=== PATIENT | female | born 2000 | race Caucasian/White ===

== ENCOUNTER 2021-01-06 17:20 | Emergency (ER) | payer BC ==
--- NOTE | 2021-01-06 17:47 | EDM.PDOC ---
ED HPI GENERAL MEDICAL PROBLEM - General Chief Complaint: Lower Extremity Injury/Pain Stated Complaint: R ANKLE INJURY Time Seen by Provider: 01/06/21 17:35 Source of Information: Reports: Patient History Limitations: Reports: No Limitations - History of Present Illness INITIAL COMMENTS - FREE TEXT/NARRATIVE: To department with a right ankle injury. Patient states that she was jumping off the bed last night with some friends and ended up rolling her ankle over another individual the ankle when he landed. She states that she was able to ambulate on the ankle last night however the pain and the swelling has significantly increased today and she has not been able to ambulate on that extremity as she once was. Patient denies any [facility] concerns. She states range of motion is limited due to the pain discomfort. Patient denies any other injuries to her body and denies any recent injuries to that ankle prior to last evening. Onset: Gradual Location: Reports: Lower Extremity, Right Quality: Reports: Ache, Throbbing Severity: Moderate Improves with: Reports: Rest Worsens with: Reports: Movement Context: Reports: Activity Associated Symptoms: Reports: No Other Symptoms ED ROS GENERAL - Review of Systems Review Of Systems: Comprehensive ROS is negative, except as noted in HPI. Constitutional: Reports: No Symptoms HEENT: Reports: No Symptoms Respiratory: Reports: No Symptoms Cardiovascular: Reports: No Symptoms Endocrine: Reports: No Symptoms GI/Abdominal: Reports: No Symptoms : Reports: No Symptoms Musculoskeletal: Reports: Foot Pain Skin: Reports: No Symptoms Neurological: Reports: No Symptoms Psychiatric: Reports: No Symptoms Hematologic/Lymphatic: Reports: No Symptoms Immunologic: Reports: No Symptoms ED EXAM, GENERAL - Physical Exam Exam: See Below Exam Limited By: No Limitations General Appearance: Alert, WD/WN, No Apparent Distress Head: Atraumatic, Normocephalic Neck: Normal Inspection, Supple, Non-Tender, Full Range of Motion Respiratory/Chest: No Respiratory Distress, Lungs Clear, Normal Breath Sounds Cardiovascular: Normal Peripheral Pulses, Regular Rate, Rhythm Extremities: Other (right ankle. Limited ROM- flexion, internal rotation. moderate swelling noted and bruising noted. ) Neurological: Alert, Oriented Psychiatric: Normal Affect, Normal Mood Course - Orders/Labs/Meds Orders: Active Orders 24 hr Category Date Time Status Ankle Min 3V Rt [CR] Stat Exams 01/06/21 17:42 Taken Departure - Departure Time of Disposition: 18:05 Disposition: Home, Self-Care 01 Condition: Good Clinical Impression: Closed right ankle fracture Qualifiers: Encounter type: initial encounter Qualified Code(s): S82.891A - Other fracture of right lower leg, initial encounter for closed fracture - Discharge Information *PRESCRIPTION DRUG MONITORING PROGRAM REVIEWED*: Not Applicable *COPY OF PRESCRIPTION DRUG MONITORING REPORT IN PATIENT CHARLY: Not Applicable Instructions: Ankle Fracture, Oxycodone tablets or capsules Forms: ED Department Discharge Additional Instructions: 1. Rest 2. wear camboot until cleared by orthopedic 3. Can use tylenol and ibuprofen as needed for pain and discomfort 4. Diet as tolerated 5. Activity as tolerated 6. Elevated the injured area above the level of the heart to decrease swelling and discomfort. 7. Use ice 3-4 times a day at 20-minute intervals to help with any swelling and discomfort 8. Follow-up with your primary care provider symptoms continue or to progress 9. Follow with any questions or concerns 10. Discharge information has been provided regarding your injury - My Orders Last 24 Hours: My Active Orders 01/06/21 17:42 Ankle Min 3V Rt [CR] Stat - Assessment/Plan Last 24 Hours: My Active Orders 01/06/21 17:42 Ankle Min 3V Rt [CR] Stat Assessment:: 1. right ankle injury 2. right ankle fracture Plan: 1. X-ray completed in the emergency department results reviewed with the patient 2. Ice Applied to the affected limb 3. camboot applied to ankle 3. Medication offered to the patient 4. Education regarding splinting, activity, [id number] medications, and follow-up care provided. 5. All questions and concerns addressed with the patient prior to discharge
--- NOTE | 2021-01-06 18:19 | CR ---
[id number] RAD/RAD Ankle Right 3V Min EXAM: RAD Ankle Right 3V Min INDICATION: FALL/SWELLING. COMPARISON: None. DISCUSSION: There is an acute medial malleolus fracture with up to 4 mm displacement and distraction. The fracture extends to the articular surface of the tibiotalar joint. No other osseous abnormality is identified. Medial soft tissue swelling. IMPRESSION: 1. Acute mildly displaced and distracted medial malleolus fracture. Brain Domingo MD 01/06/21 [id number] Thank you for allowing us to participate in the care of your patient.
[2021-01-06] MEDS: Take Home: Acetaminophen/oxyCODONE 325-5 MG, 5 Tab Pack PO ONE (18:23)
== END 2021-01-06 18:20 | disposition home or self-care (01) ==
LOC: VM.ED 17:20
DX: S82.51XA Displaced fracture of medial malleolus of right tibia, initial encounter for closed fracture (principal); X50.1XXA Overexertion from prolonged static or awkward postures, initial encounter; Y93.39 Activity, other involving climbing, rappelling and jumping off
CPT/HCPCS: 73610; 99283; A9270